=== PATIENT | female | born 1980 | race Caucasian/White ===

== ENCOUNTER 2016-08-01 13:41 | Emergency (ER) | payer BC ==
[2016-08-01] MEDS ORDERED: SUBLIMAZE 100 MCG/2 ML IV ONE ×2 (13:55→14:32)
[2016-08-01] MEDS ORDERED: Sodium Chloride 0.9% 1000 ML 1,000 ML IV STA (13:55)
[2016-08-01] MEDS ORDERED: Phenergan 25 MG INJ IV ONE (13:55)
[2016-08-01] MEDS ORDERED: Sodium Chloride 0.9% 1000 ML 1,000 ML ONE (14:01)
[2016-08-01] MEDS ORDERED: Phenergan 25 MG INJ ONE (14:01)
[2016-08-01] MEDS ORDERED: SUBLIMAZE 100 MCG/2 ML ONE ×2 (14:03→14:32)
--- NOTE | 2016-08-01 14:15 | ERPHSYRPT ---
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 had recent nasal surgery last Triage Nursing Assessment: pt walked in , alert,crying, resp easy, abd soft, co rectal pain Physician History: PATIENT HAS SEVERE CONSTIPATION FOR 8 DAYS, TAKING NARCOTICS AFTER NASAL SURGERY , HAS SEVERE PRESSURE IN RECTUM. DENIES NAUSEA OR EMESIS. Timing/Duration: day(s) Activities at Onset: none Quality: throbbing Abdominal Pain Onset Location: other (RECTUM) Severity of Pain-Max: severe Severity of Pain-Current: severe Modifying Factors: Improves With: walking Previous symptoms: same symptoms as today Allergies/Adverse Reactions: hydromorphone HCl [From Dilaudid] Allergy (Verified 08/01/16 13:48) Home Medications: Cetirizine HCl [Zyrtec] 1 mg DAILY 08/01/16 [History] Hx Tetanus, Diphtheria Vaccination/Date Given: Yes Hx Influenza Vaccination/Date Given: No Hx Pneumococcal Vaccination/Date Given: No Immunizations Up to Date: Yes - Review of Systems Constitutional: No Fever, No Chills Eyes: No Symptoms Ears, Nose, & Throat: No Symptoms Respiratory: No Symptoms, No Cough, No Dyspnea Cardiac: No Symptoms, No Chest Pain, No Edema, No Syncope Abdominal/Gastrointestinal: Other (RECTAL PAIN), No Abdominal Pain, No Nausea, No Vomiting, No Diarrhea Genitourinary Symptoms: No Symptoms (UNABLE TO URINATE), No Dysuria Musculoskeletal: No Symptoms, No Back Pain, No Neck Pain Skin: No Rash Neurological: No Dizziness, No Focal Weakness, No Sensory Changes Psychological: No Symptoms Endocrine: No Symptoms All Other Systems: Reviewed and Negative - Past Medical History Pertinent Past Medical History: Yes Psycho-Social History: Depression - Past Surgical History Past Surgical History: Yes Female Surgical History: Hysterectomy Other Surgical History: female surgeries prior to hyst. rt hip inpingement - Social History Smoking Status: Current every day smoker Exposure to second hand smoke: Yes Drug Use: none Patient Lives Alone: No - Female History Hx Last Menstrual Period: 2008 - Nursing Vital Signs Nursing Vital Signs: Initial Vital Signs Temperature 98.0 F Temperature Source Oral Pulse Rate 123 Respiratory Rate 20 Blood Pressure [Right Arm] 152/79 Pain Intensity 8 - Physical Exam General Appearance: no apparent distress, alert Eye Exam: PERRL/EOMI, eyes nml inspection Ears, Nose, Throat Exam: normal ENT inspection, pharynx normal, moist mucous membranes Neck Exam: normal inspection, non-tender, supple, full range of motion Respiratory Exam: normal breath sounds, lungs clear, No respiratory distress Cardiovascular Exam: regular rate/rhythm, normal heart sounds Gastrointestinal/Abdomen Exam: soft, No tenderness, No mass Rectal Exam: normal rectal tone, tenderness (MARKED AMOUNT OF FIRM STOOL IN RECTAL VAULT) Back Exam: normal inspection, normal range of motion, No CVA tenderness, No vertebral tenderness Extremity Exam: normal inspection, normal range of motion, pelvis stable Neurologic Exam: alert, oriented x 3, cooperative, normal mood/affect, nml cerebellar function, sensation nml, No motor deficits Skin Exam: normal color, warm, dry SpO2 Interpretation: normal SpO2: 98 Oxygen Delivery: Room Air - Radiology Exams Abdomen X-ray Interpretation: Discussed w/ radiologist (NO BOWEL OBSTRUCTION OR FREE AIR ) Ordered Tests: Active Orders 24 hr Category Date Time Status Enema STAT Care 08/01/16 13:58 Inactive Enema STAT Care 08/01/16 14:34 Active P[place]or [Catheter-[place] Pryor] STAT Care 08/01/16 14:16 Active IV Insertion STAT Care 08/01/16 14:23 Active OBSTR/ACUTE ABDOMEN SERIES Stat Exams 08/01/16 13:57 Completed CBC W DIFF Stat Lab 08/01/16 14:21 Completed UA W/ MICROSCOPIC Stat Lab 08/01/16 14:21 Completed Medication Summary Discontinued Medications Generic Name Dose Route Start Last Admin Trade Name Avani PRN Reason Stop Dose Admin Fentanyl Citrate 100 mcg 08/01/16 13:55 08/01/16 14:05 Sublimaze 100 Mcg/2 Ml IV 08/01/16 13:56 100 mcg STAT ONE Administration Fentanyl Citrate Confirm 08/01/16 14:03 Sublimaze 100 Mcg/2 Ml Administered 08/01/16 14:04 Dose 100 mcg .ROUTE .STK-MED ONE Fentanyl Citrate 100 mcg 08/01/16 14:32 08/01/16 14:33 Sublimaze 100 Mcg/2 Ml IV 08/01/16 14:33 100 mcg STAT ONE Administration Fentanyl Citrate Confirm 08/01/16 14:32 Sublimaze 100 Mcg/2 Ml Administered 08/01/16 14:33 Dose 100 mcg .ROUTE .STK-MED ONE Sodium Chloride 1,000 mls @ 999 mls/hr 08/01/16 13:55 08/01/16 14:05 Sodium Chloride 0.9% 1000 Ml IV 08/01/16 14:55 999 mls/hr .Q1H1M STA Administration Sodium Chloride Confirm 08/01/16 14:01 Sodium Chloride 0.9% 1000 Ml Administered 08/01/16 14:02 Dose 1,000 mls @ ud .ROUTE .STK-MED ONE Promethazine HCl 12.5 mg 08/01/16 13:55 08/01/16 14:05 Phenergan 25 Mg Inj IV 08/01/16 13:56 12.5 mg STAT ONE Administration Promethazine HCl Confirm 08/01/16 14:01 Phenergan 25 Mg Inj Administered 08/01/16 14:02 Dose 25 mg .ROUTE .STK-MED ONE Lab/Rad Data: Laboratory Result Diagrams 08/01/16 14:21 Laboratory Results 08/01/16 08/01/16 Range/Units 14:21 14:21 WBC 12.7 H (4.0-10.5) K/mm3 RBC 4.16 (4.1-5.4) M/mm3 Hgb 13.3 (12.0-16.0) gm/dl Hct 38.8 (35-47) % MCV 93.3 (78-100) fl MCH 32.0 (26-32) pg MCHC 34.3 (32-36) g/dl RDW 12.3 (11.5-14.0) % Plt Count 310 (150-450) K/mm3 MPV 10.3 H (6-9.5) fl Gran % 71.7 H (36.0-66.0) % Lymphocytes % 20.5 L (24.0-44.0) % Monocytes % 5.9 (0.0-12.0) % Eosinophils % 1.7 (0.00-5.0) % Basophils % 0.2 (0.0-0.4) % Basophils # 0.03 (0-0.4) Ur Collection Type CATH Urine Color YELLOW (YELLOW) Urine Appearance CLEAR (CLEAR) Urine pH 5.5 (5-6) Ur Specific [place] 1.025 (1.005-1.025) Urine Protein NEGATIVE (Negative) Urine Glucose (UA) NEGATIVE (NEGATIVE) mg/dL Urine Ketones TRACE (NEGATIVE) Urine Nitrite NEGATIVE (NEGATIVE) Urine Bilirubin NEGATIVE (NEGATIVE) Urine Urobilinogen 0.2 (0-1) mg/dL Urine WBC (Auto) NEGATIVE (NEGATIVE) Urine RBC (Auto) TRACE-INTACT (0-5) Damion/ul Urine Microscopic RBC 2-5 (0-2) /HPF Ur Epithelial Cells RARE (FEW) /HPF Urine Bacteria RARE (NEGATIVE) /HPF Urine Mucus SLIGHT (NEGATIVE) /HPF Specimen Received 08/01/16 1415 - Progress Progress Note: 08/01/16 14:02 PATIENT GIVEN IV NORMAL SALINE 1 LITER WIDE OPEN, ZOFRAN 4MG, FENTANYL 0.1MG IV , MANUAL RECTAL IMPACTION FOLLOWED BY SOAP SUDS ENEMA. 08/01/16 15:20 GOOD RESULTS WITH EMEMA - Departure Time of Disposition: 15:21 Departure Disposition: Home Clinical Impression: CONSTIPATION Condition: Stable Critical Care Time: No Referrals: CUATE PURI [Primary Care Provider] - Additional Instructions: TAKE DAILY STOOL SOFTNER COLACE 2-3 TIMES DAILY ALONG WITH MIRALAX FOR CONSTIPATION. DRINK PLENTY OF FLUIDS. CONSULT YOUR PRIMARY CARE PHYSICIAN FOR EVALUATION IN 1 WEEK.
[2016-08-01 14:26] LABS: Collection Type CATH
[2016-08-01 14:27] LABS: COMPLETE URINE MICROSCOPIC? YES; Ph 5.5 (5-6)
--- NOTE | 2016-08-01 14:37 | XRAY ---
Exam: Acute obstructive series from 08/01/2016. Comparison: None. Indication: Recent nasal septum surgery, patient complains of constipation and pain with sitting, rectal pain. Findings: AP upright chest film reveals a normal heart size and contour. The jorge and mediastinal structures appear intact. There is adequate inflation of the lungs. A tiny calcified granuloma is seen within the central left upper lung field. The remainder of the lung naranjo appears clear. The pulmonary vascularity is normal. No pneumothorax or pleural fluid is seen. 3 supine images of the abdomen and an upright image of the abdomen were obtained. The bowel gas pattern appears nonspecific without significant bowel distention. I do note several air-fluid levels within nondilated bowel in the right upper quadrant and the gastric fundus on the upright image. No free intraperitoneal air is seen. No hepatosplenomegaly is seen. No suspicious abdominal calcifications are seen. There is slight deviation of the mid thoracic spine toward the right and the thoracolumbar junction toward the left on the upright image. Impression: 1. No acute cardiopulmonary disease is seen. 2. Nonspecific bowel gas pattern with scattered air-fluid levels within nondilated bowel within the upper abdomen on the upright image. Consider gastroenteritis versus ileus. There is no evidence of bowel obstruction. 3. No free intraperitoneal air is seen.
[2016-08-01 14:40] LABS: BASOPHIL % 0.2 % (0.0-0.4); Bacteria RARE /HPF (NEGATIVE); Eosinophil % 1.7 % (0.00-5.0); Epithelial Cells RARE /HPF (FEW); Granulocytes % 71.7 % (36.0-66.0); Lymphocytes % 20.5 % (24.0-44.0); Mean Cell Volume 93.3 fl (78-100); Mean Platelet Volume 10.3 fl (6-9.5); Monocytes % 5.9 % (0.0-12.0); Mucus SLIGHT /HPF (NEGATIVE); Platelet Count 310 K/mm3 (150-450); Red Blood Count 4.16 M/mm3 (4.1-5.4); Red Cell Distribution Width 12.3 % (11.5-14.0); White Blood Count 12.7 K/mm3 (4.0-10.5)
[2016-08-01 14:57] LABS: ADD URINE CULTURE? NO (NO)
[2016-08-01 15:40] VITALS: BP 125/78; PULSE 70; O2SAT 97
== END 2016-08-01 15:40 | disposition home or self-care (01) ==
LOC: ED 13:41
DX: K59.00 Constipation, unspecified (principal)
CPT/HCPCS: 36000; 36415; 51702; 74022; 81000; 85025; 96360; 96374; 96375; 99284; J2550; J3010